=== PATIENT | female | born 1930 | race Caucasian/White ===

== ENCOUNTER 2017-12-26 17:20 | Inpatient (IN) | payer OTHER ==
[~2017-12-26] VITALS: Ht 160 cm; Wt 66.4 kg
[2017-12-26 18:37] LABS: microscopic required? NO
[2017-12-26 18:44] LABS: BASOPHIL % 0.2 % (0-2); PLATELET COUNT 329 x10^3mcL (130-400)
[2017-12-26 18:45] LABS: RED CELL DISTRIBUTION WIDTH 22.3 % (11.5-14.5)
[2017-12-26 18:54] LABS: urine erythrocyte NEGATIVE (NEGATIVE)
[2017-12-26 19:00] LABS: CALCIUM 9.4 mg/dL (8.5-10.1); CARBON DIOXIDE 30.9 mmol/L (21-32); CHLORIDE SERUM 102 mmol/L (98-107); GLUCOSE SERUM 171 mg/dL (74-106); POTASSIUM SERUM 5.2 mmol/L (3.5-5.1); SODIUM SERUM 140 mmol/L (136-145)
[2017-12-26 19:05] LABS: ALKALINE PHOSPHATASE 131 U/L (46-116); ALT/SGPT 25 U/L (14-59); AST/SGOT 28 U/L (15-37); BILIRUBIN TOTAL 0.4 mg/dL (0.20-1.00); CHOLESTEROL 154 mg/dL (<200); LIPASE 145 IU/L (73-393); TOTAL PROTEIN, SERUM 6.8 g/dL (6.4-8.2); TRIGLYCERIDES 81 mg/dL (<150)
[2017-12-26 19:07] LABS: CHOLESTEROL/HDL RATIO 1.7; HDL CHOLESTEROL 92 mg/dL (40-60)
[2017-12-26 19:12] LABS: FREE T4 0.98 ng/dL (0.76-1.46); FREE THYROXINE INDEX 1.7 ug/dL (1.4-4.5); T4(THYROXINE) 4.9 ug/dL (4.7-13.3)
[2017-12-26 19:41] LABS: T3 TOTAL 0.62 ng/mL
[2017-12-26] MEDS ORDERED: ZESTRIL20 MG PO (20:48)
[2017-12-26] MEDS ORDERED: PREDNISONE1 MG PO (20:49)
[2017-12-26] MEDS ORDERED: FUROSEMIDE40 MG PO (20:49)
[2017-12-26] MEDS ORDERED: COLCHICINE0.6 M1 PO (20:49)
[2017-12-26] MEDS ORDERED: HYDROXYCHLOROQ200 MG PO (20:50)
[2017-12-26] MEDS ORDERED: LOVASTATIN40 MG PO (20:50)
[2017-12-26] MEDS ORDERED: CYMBALTA60 M1 PO (20:50)
[2017-12-26] MEDS ORDERED: ARAVA20 MG PO (20:51)
[2017-12-26] MEDS ORDERED: LEVOTHYROXIN0.075 M2 PO (20:51)
[2017-12-26 21:52] LABS: MAGNESIUM 2.1 mg/dL (1.8-2.4); PHOSPHOROUS 3.5 mg/dL (2.5-4.9)
[2017-12-26 22:12] VITALS: BP 124/64
[2017-12-27 07:04] LABS: BASOPHIL % 0.4 % (0-2); PLATELET COUNT 277 x10^3mcL (130-400)
[2017-12-27 07:08] LABS: RED CELL DISTRIBUTION WIDTH 22.5 % (11.5-14.5)
[2017-12-27 07:09] LABS: rbc morphology (normal/abnorm) ABNORMAL (NORMAL)
[2017-12-27 07:58] LABS: CALCIUM 8.9 mg/dL (8.5-10.1); CARBON DIOXIDE 30.5 mmol/L (21-32); CHLORIDE SERUM 103 mmol/L (98-107); CREATININE SERUM 0.8 mg/dL (0.6-1.0); GLUCOSE SERUM 97 mg/dL (74-106); POTASSIUM SERUM 4.6 mmol/L (3.5-5.1); SODIUM SERUM 140 mmol/L (136-145)
[2017-12-27 08:20] VITALS: BP 105/69
[2017-12-27 11:40] VITALS: BP 108/59
[2017-12-27 16:55] VITALS: BP 114/38
[2017-12-27 20:18] VITALS: BP 109/54
[2017-12-28 05:49] VITALS: BP 138/59
[2017-12-28 06:56] LABS: BASOPHIL % 0.1 % (0-2); PLATELET COUNT 280 x10^3mcL (130-400)
[2017-12-28 06:59] LABS: RED CELL DISTRIBUTION WIDTH 21.9 % (11.5-14.5)
[2017-12-28 07:00] LABS: rbc morphology (normal/abnorm) ABNORMAL (NORMAL)
[2017-12-28 07:39] LABS: CALCIUM 8.4 mg/dL (8.5-10.1); CARBON DIOXIDE 28.9 mmol/L (21-32); CHLORIDE SERUM 102 mmol/L (98-107); CREATININE SERUM 0.7 mg/dL (0.6-1.0); GLUCOSE SERUM 97 mg/dL (74-106); MAGNESIUM 1.8 mg/dL (1.8-2.4); PHOSPHOROUS 2.6 mg/dL (2.5-4.9); POTASSIUM SERUM 3.6 mmol/L (3.5-5.1); SODIUM SERUM 138 mmol/L (136-145)
[2017-12-28 09:20] VITALS: BP 133/52
[2017-12-28 13:16] VITALS: Ht 160 cm; Wt 66.4 kg
[2017-12-28 13:46] VITALS: BP 114/55
[2017-12-28 15:51] VITALS: BP 114/55
[2017-12-28 17:16] VITALS: BP 122/59
[2017-12-28 20:52] VITALS: BP 121/66
== END 2017-12-29 02:01 | DRG 535 ==
LOC: ED 17:20 → DU 20:27
PROVIDERS: Family Medicine; Specialist
DX: S32.302A Unspecified fracture of left ilium, initial encounter for closed fracture (principal); N17.0 Acute kidney failure with tubular necrosis; E44.0 Moderate protein-calorie malnutrition; I48.2 Chronic atrial fibrillation; I10 Essential (primary) hypertension; H54.8 Legal blindness, as defined in USA; H91.91 Unspecified hearing loss, right ear; M11.20 Other chondrocalcinosis, unspecified site; D64.9 Anemia, unspecified; E03.9 Hypothyroidism, unspecified; Z68.24 Body mass index [BMI] 24.0-24.9, adult; Z86.73 Personal history of transient ischemic attack (TIA), and cerebral infarction without residual deficits; Z85.3 Personal history of malignant neoplasm of breast; Z90.49 Acquired absence of other specified parts of digestive tract; Z90.710 Acquired absence of both cervix and uterus; Z79.52 Long term (current) use of systemic steroids; Z88.2 Allergy status to sulfonamides; W01.190A Fall on same level from slipping, tripping and stumbling with subsequent striking against furniture, initial encounter; Y92.008 Other place in unspecified non-institutional (private) residence as the place of occurrence of the external cause
CPT/HCPCS: 83880; 84439; 97110-GP; 97116-GP; 97530-GP; J1644; J1885; J2405; J3010; J7030; J7512